=== PATIENT | female | born 1990 | race Native Hawaiian/Other Pacific Islander ===

== ENCOUNTER 2020-04-29 11:47 | Emergency (ER) | payer SELFPAY ==
[2020-04-29 12:07] VITALS: BP 122/74
[2020-04-29 13:13] LABS: HCG Qualitative,Urine Positive (Negative)
[2020-04-29 13:18] LABS: Hematocrit 43.4 % (30.3-42.9); Mean Corpuscular HGB Conc 35 % (30-34); Mean Corpuscular Volume 90 fl (79-97); Platelet Count 357 K/mm3 (140-440); Red Blood Count 4.82 M/mm3 (3.65-5.03)
[2020-04-29 13:19] LABS: Bilirubin,Urine NEG (Negative); Blood,Urine NEG (Negative); Color,Urine Yellow (Yellow); Hyaline Casts,Urine 1 /LPF; Mucus,Urine 1+ /HPF; Protein,Urine <15 mg/dL mg/dL (Negative)
[2020-04-29 13:39] LABS: Alanine Aminotransferase 67 units/L (7-56); Albumin 4.7 g/dL (3.9-5); Blood Urea Nitrogen 15 mg/dL (7-17); Hemolysis Index 5
[2020-04-29 13:45] LABS: BUN/Creatinine Ratio 30
[2020-04-29 14:15] LABS: Basophils % (Manual) 0 % (0.0-1.8); Eosinophils % (Manual) 0 % (0.0-4.3); Platelet Estimate Consistent w Auto; RBC Morphology Normal; Total Cells Counted 100
[2020-04-29] MEDS ORDERED: ONDANSETRON 4 MG/2 ML INJ IV ONE ×2 (14:40→15:22)
[2020-04-29] MEDS ORDERED: METOCLOPRAMIDE 10 MG/2 ML INJ IV ONE (14:41)
[2020-04-29] MEDS ORDERED: SODIUM CHLORIDE 0.9% 1000 ML 1,000 ML IV ONE (14:43)
[2020-04-29] MEDS ORDERED: FAMOTIDINE 20 MG/2 ML INJ IV ONE (14:43)
[2020-04-29] MEDS ORDERED: D5W/0.45% NACL 1,000 ML IV SCH (15:00)
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
[2020-04-29] MEDS ORDERED: diphenhydrAMINE 50 MG/ML VIAL IV ONE (15:14)
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
== END 2020-04-29 17:06 | disposition home or self-care (01) ==
LOC: ED 11:47
DX: O99.281 Endocrine, nutritional and metabolic diseases complicating pregnancy, first trimester (principal); E87.6 Hypokalemia; O99.341 Other mental disorders complicating pregnancy, first trimester; F41.8 Other specified anxiety disorders; O21.8 Other vomiting complicating pregnancy; Z88.0 Allergy status to penicillin; Z3A.01 Less than 8 weeks gestation of pregnancy
CPT/HCPCS: 36415; 80053; 81001; 81025; 82550; 83690; 83735; 84702; 85007; 85025; 87086; 93005; 96361; 96374; 96375; 99284; J1200; J2405; J7030; J2765